=== PATIENT | female | born 1990 | race Caucasian/White ===

== ENCOUNTER 2022-08-20 09:58 | Emergency (ER) | payer BC, SELFPAY ==
--- NOTE | 2022-08-20 10:01 | ED.URI ---
HPI - URI/Sore Throat General Chief Complaint: Upper Respiratory Infection Stated Complaint: sore throat and ear pain Time Seen by Provider: 08/20/22 10:01 Source: patient and RN notes reviewed History of Present Illness HPI Narrative: patient is a 31-year-old female who presents to urgent care with complaints of sore throat, bilateral ear pain, cough and drainage. Patient states it started 1 week ago and she had a 1 time fever yesterday. Patient denies any ill exposures. Patient has taken DayQuil and NyQuil. No other acute complaints. No acute distress noted. Patient aware of the plan of care. Some parts of this dictation were generated by voice recognition software and may contain typographical and/or grammatical inaccuracies. Related Data Allergies Allergy/AdvReac Type Severity Reaction Status Date / Time No Known Allergies Allergy Verified 08/20/22 10:08 Review of Systems Review of Systems: CONSTITUTIONAL: Denies fever, chills, or sweats. EYES: Denies visual changes, redness, or discharge. ENT: Reports of nasal congestion, postnasal drainage, sore throat, bilateral otalgia CARDIOVASCULAR: Denies chest pain, palpitations, or edema. RESPIRATORY: reports a mild cough without dyspnea GASTROINTESTINAL: Denies abdominal pain, nausea, vomiting, or diarrhea. GENITOURINARY: Denies dysuria or hematuria. SKIN: Denies rash or itching. MUSCULOSKELETAL: Denies back pain, joint pain, or myalgia. NEUROLOGIC: Denies headache, numbness, or weakness. All other systems reviewed are negative, except as documented in HPI. [facility] Past Medical History Medical History BMI 28.0-28.9,adult BMI 37.0-37.9, adult Patellofemoral arthralgia of both knees Perforation of right tympanic membrane Tonsillectomy planned Weight gain Surgical History Surgical History History of placement of ear tubes Family History Family History Father No problems noted. Mother No problems noted. Sibling No problems noted. Other Diabetes mellitus Family history of coronary artery disease Social History Social History Tobacco type: cigarettes and e-cigarettes/vaping Second hand tobacco smoke exposure: No Alcohol intake: current Drinks per week: 1 Substance use: never Substance use type: does not use Additional occupation/education comments: medical coding Gender identity (if verbalized by the patient): Female Sexual Orientation (if Verbalized by the Patient): Straight or Heterosexual Spiritual care concerns: No Agree to blood products: Yes Comments At the time of my signature, I reviewed and agree with the nursing past medical, surgical, social, and family history. There is no relevant family history pertinent to the patient complaint. Exam Narrative: GENERAL: This is a well-nourished, well-developed patient, in no apparent distress. HEAD: normocephalic, atraumatic. EYES: PERRL. Sclera clear/white. Vision is grossly intact. EARS: External ears normal, auditory canals clear and without drainage, TMs normal without perforation. Hearing grossly intact. NOSE: External nose normal with no obvious nasal discharge, nares without redness, Clear rhinorrhea. THROAT: Mucous membranes moist, mild erythema to posterior pharynx without exudate or ulceration. Mild postnasal drainage. NECK: Neck supple, non-tender without lymphadenopathy, masses or thyromegaly. CARDIOVASCULAR: Regular rate and rhythm RESPIRATORY: Clear to auscultation. Breath sounds equal bilaterally. No wheezes, rales, or rhonchi. SKIN: warm, intact with no suspicious lesions or rash, good texture and turgor. NEURO: awake, alert, and oriented to person, place and time. There were no obvious focal neurologic abnormalities
[2022-08-20 10:02] VITALS: BP 81/64; PULSE 78; RESP 20; TEMP 36.5; O2SAT 98
[2022-08-20 10:09] VITALS: BP 81/64; PULSE 78; RESP 20; TEMP 36.5; O2SAT 98
== END 2022-08-20 10:18 | disposition home or self-care (01) ==
PROVIDERS: Emergency Provider Nurse Practitioner Family; PCP Family Medicine
DX: J02.9 Acute pharyngitis, unspecified (principal)
CPT/HCPCS: 87081; 99213; G0463

== ENCOUNTER 2023-07-27 16:43 | Outpatient (CLI) | payer BC, SELFPAY ==
--- NOTE | ~2023-07-27 | XR_ITS ---
EXAMINATION: XR chest 2V DATE: 07/27/2023 16:56 INDICATION: Other chest pain. TECHNIQUE: Frontal and lateral views of the chest were obtained. COMPARISON: None. FINDINGS: There is no pneumonia, pleural effusion, or pneumothorax. The heart size is normal. IMPRESSION: 1. No acute cardiopulmonary disease. Reviewed, dictated and finalized at location E. LEWARE ARCHITECT
== END 2023-07-27 16:44 | disposition home or self-care (01) ==
PROVIDERS: PCP Family Medicine; Visit Provider Nurse Practitioner Family
DX: R07.89 Other chest pain (principal)
CPT/HCPCS: 71046

== ENCOUNTER 2023-07-28 08:37 | Outpatient (CLI) | payer BC, SELFPAY ==
--- NOTE | 2023-07-28 08:53 | ECG_ITS ---
Measurements Intervals [place] Rate: 68 P: 43 CT: 131 QRS: 70 QRSD: 102 T: 45 QT: 391 QTc: 418 Interpretive Statements SINUS RHYTHM BASELINE ARTIFACT- II, III, AVF NORMAL ECG NO PREVIOUS ECG AVAILABLE FOR COMPARISON Electronically Signed On 07-28-2023 10:51:16 LIAISON PLANNER by Cortez Lynne D.O.
== END 2023-07-28 08:38 | disposition home or self-care (01) ==
LOC: ANHIMG 08:38 → ANHCARD 08:42
PROVIDERS: PCP Family Medicine; Visit Provider Nurse Practitioner Family
DX: R07.89 Other chest pain (principal)
CPT/HCPCS: 93005

== ENCOUNTER 2024-09-08 08:40 | Emergency (ER) | payer BC, SELFPAY ==
--- NOTE | ~2024-09-08 | XR_ITS ---
EXAMINATION: XR ankle LT min 3V DATE: 09/08/2024 09:06 INDICATION: Left ankle injury. TECHNIQUE: 4 views of left ankle were obtained. COMPARISON: None. FINDINGS: Alignment is normal. No fracture. Joint spaces are normal. There is an enthesophyte of post erior aspect of calcaneal tuberosity. IMPRESSION: 1. No fracture. Reviewed, dictated and finalized at location A. SPORTATION MECHANIC IMPRESSION: 1. No fracture.
[2024-09-08 08:44] VITALS: BP 123/74; PULSE 72; RESP 18; TEMP 37.2; O2SAT 99
--- NOTE | 2024-09-08 08:53 | ED_ITS ---
HPI - Extremity Injury (Lower) General Chief Complaint: Extremity Injury, Lower Stated Complaint: Fall Injury/Left Ankle History of Present Illness HPI Narrative: Patient presents with discomfort to left ankle. Patient states she rolled on a gum ball in the yd yesterday. No deformity noted no bruising no open areas noted. Patient states it hurts when she tries to ambulate on her ankle. Related Data Home Medications ?Medication ?Instructions ?Recorded ?Confirmed ?Last Taken ?Type No Home Medications 09/08/24 09/08/24 Unknown History Allergies Allergy/AdvReac Type Severity Reaction Status Date / Time No Known Allergies Allergy Verified 09/08/24 08:58 Review of Systems Review of Systems: CONSTITUTIONAL: Denies fever, chills, or sweats. EYES: Denies visual changes, redness, or discharge. ENT: Denies rhinorrhea, congestion, sore throat, or otalgia. CARDIOVASCULAR: Denies chest pain, palpitations, or edema. RESPIRATORY: Denies cough or dyspnea. GASTROINTESTINAL: Denies abdominal pain, nausea, vomiting, or diarrhea. GENITOURINARY: Denies dysuria or hematuria. SKIN: Denies rash or itching. MUSCULOSKELETAL: Denies back pain, joint pain, or myalgia. NEUROLOGIC: Denies headache, numbness, or weakness. PSYCHIATRIC: Denies anxiety or depression. [facility] Past Medical History Medical History BMI 28.0-28.9,adult BMI 35.0-35.9,adult BMI 37.0-37.9, adult Patellofemoral arthralgia of both knees Perforation of right tympanic membrane Tonsillectomy planned Weight gain Surgical History Surgical History History of placement of ear tubes Family History Family History Father No problems noted. Mother No problems noted. Sibling Pleurisy Other Diabetes mellitus Family history of coronary artery disease Social History Social History Smoking status: Current some day smoker Tobacco type: cigarettes and e-cigarettes/vaping Second hand tobacco smoke exposure: No Alcohol intake: current Drinks per week: 1 Substance use: never Substance use type: does not use Lack of Transportation: No Lack of Food: Never True Current Housing: I Have Housing Concerned About Future Housing: No Difficulty Paying Gas/Electric Bills: No Difficulty Paying for Meds: No Currently Unemployed: No Education: High School Diploma/GED Difficulty w/ Childcare or Family Care: No Living arrangements: with family Occupation/Education: occupation Additional occupation/education comments: medical coding Gender identity (if verbalized by the patient): Female Sexual Orientation (if Verbalized by the Patient): Straight or Heterosexual Spiritual care concerns: No Agree to blood products: Yes Comments At time of signature, agree with nursing past medical, surgical, social and family history. There is no relevant family history pertinent to the presenting complaint Exam Narrative: GENERAL: Well-appearing, well-nourished, and in no acute distress. HEAD: Normocephalic, atraumatic. EYES: PERRLA and EOMI. ENT: Nares clear, no rhinorrhea or epistaxis. Mucous membranes moist. NECK: Supple. CHEST: Clear to auscultation. No respiratory distress. HEART: Regular rate and rhythm. No murmur heard. Normal peripheral pulses. ABDOMEN: Soft, nontender, nondistended, normal active bowel sounds. SKIN INTACT. NORMAL DP PULSE, NORMAL CAP REFILL. NORMAL SENSATION. PAIN TO LATERAL SIDE OF LEFT ANKLE SIGH WELLING NOTED EXTREMITIES: Normal range of motion. No edema. SKIN: Warm, dry, no rash. NEURO: No focal deficits. Alert and oriented x3. [place] Coma Scale Eye Opening: Spontaneous 4 [place] Coma Scale Motor: Obeys Commands 6 [place] Coma Scale Verbal: Oriented 5 [place] Coma Scale Total 15 Course Course Level of Care: Express Care Visit Vital Signs Vital signs: Vital Signs Temperature 37.2 C 09/08/24 08:44 Pulse Rate 72 09/08/24 08:44 Respiratory Rate 18 09/08/24 08:44 Blood Pressure 123/74 09/08/24 08:44 Pulse Oximetry 99 09/08/24 08:44 Oxygen Delivery Room Air 09/08/24 08:44 Temperature 37.2 C 09/08/24 08:44 Pulse Rate 72 09/08/24 08:44 Respiratory Rate 18 09/08/24 08:44 Blood Pressure 123/74 09/08/24 08:44 Pulse Oximetry 99 09/08/24 08:44 Oxygen Delivery Room Air 09/08/24 08:44 MDM - Extremity Injury (Lower) Imaging Data Radiologist's impression: Patient: Ana Roblero : 1990 MR#: [id number] Age: 33 Acct:[id number] Loc: [facility] ADM Date: 09/08/24Attending Dr: Ordering Physician: Jess Saba APRN Date of Service: 09/08/24 Procedure(s): XR ankle LT min 3V Accession Number(s): [id number] cc: Jses Saba APRN; Saqib Silvestre MD~ EXAMINATION: XR ankle LT min 3V DATE: 09/08/2024 09:06 INDICATION: Left ankle injury. TECHNIQUE: 4 views of left ankle were obtained. COMPARISON: None. FINDINGS: Alignment is normal. No fracture. Joint spaces are normal. There is an enthesophyte of posterior aspect of calcaneal tuberosity. IMPRESSION: 1. No fracture. Reviewed, dictated and finalized at location A. SECURITY ANALYST Dictated By: Reginald Hunter MD 09/08/24 0915 Signed By: <Electronically signed by Reginald Hunter MD in [place]> Discharge Plan Discharge Clinical Impression: Left ankle sprain Ankle sprain Qualifiers: Encounter type: initial encounter Patient Disposition: Home, Self-Care Condition: Stable Instructions: Ankle Sprain (DC) Additional Instructions: Ice to the area 20-30 minutes 4-6 times a day Elevate above heart Elastic wrap or orthopedic splint as directed for comfort for the next 5-7 days please get a walking boot at any [facility] or [facility] Tylenol for lesser pain Ibuprofen regularly for the next 2-3 days for the inflammation Follow-up with PCP if further problems or concerns -If you have any worsening of symptoms or any other concerns please go to the ED immediately. Patient Language: Chinese Prescriptions: No Action No Home Medications Follow-up/Referrals: Saqib Silvestre MD [Primary Care Provider] - Phill Hammond MD [Physician] - 1 Week (call office for follow up appointment)
--- OUTSIDE RECORDS SUMMARY | 2024-09-15 06:46 | XMS_ITS | Encounter Summary ---
Author Organization [employer] Address [address] [place] [address] Care Team Providers Care Microwave Remote Sensing Scientist Name Role Phone Unavailable Primary Care Provider Unavailabl e Reason for Visit * Reason Onset Date Comments General 12/29/2020 Letter sent to a ssist patient in finding [facility] patient has [employer] insurance. Patient lives in [place] Encounter Details Date Type Department Care Team (Late st Contact Info) Description 12/29/2020 Patient Outreach [facility] Outbound Calling [id number] [place] [id number] Provider, Abstract NO ADDRESS ON FILE General (Letter sent to assist patient in finding [facility]CP patient has [employer] insurance. Patient lives in [place]) Social History Tobacco Use Types Packs/Day Years Used Date Smoking Tobacco: Never Assessed Sex and Gender Information Value Date Recorded Sex Assigned at Not on file Gender Identity Not on file Sexual Orientation Not on file documented as of this encounter Miscellaneous Notes * Telephone Encounter - Mary Gaston - 12/29/2020 8:19 AM CDT Letter sent to assist patient in finding [facility]CP patient has [employer] insurance. Patient lives in [place] documented in this encounter Plan of Treatment Not on file documented as of this encounter Visit Diagnoses Not on filedocumented in this encounter
--- OUTSIDE RECORDS SUMMARY | 2024-09-15 06:46 | XMS_ITS | Clinical Summary ---
Author Organization [employer] Address [address] [place]: Epic Prelude ADT [place] [phone] Care Team Providers Care Gift Shop Manager Name Role Phone Unavailable Primary Care Provider Unavailabl e Social History Tobacco Use Types Packs/Day Years Used Date Smoking Tobacco: Never Assessed Sex and Gender Information Value Date Recorded Sex Assigned at Not on file Gender Identity Not on file Sexual Orientation Not on file Plan of Treatment Health Maintenance Due Date Last Done Comments DTAP/TDAP/TD VACCINES (1 - Tdap) 12/09/2007 HEPATITIS B VACCINES (1 of 3 - 19+ 3-dose series) 12/09/2007 CERVICAL CANCER SCREENING 2018 INFLUENZA VACCINE (#1) 2024 HPV VACCINES Aged Out No longer eligi ble based on patient's age to complete this topic PNEUMOCOCCAL VACCINE 0-64 YEARS Aged Out No longer eligible based on patient's age to complete this topic
== END 2024-09-08 09:25 | disposition home or self-care (01) ==
PROVIDERS: Emergency Provider Nurse Practitioner Family; PCP Family Medicine
DX: S93.402A Sprain of unspecified ligament of left ankle, initial encounter (principal); W22.8XXA Striking against or struck by other objects, initial encounter; F17.210 Nicotine dependence, cigarettes, uncomplicated; F17.290 Nicotine dependence, other tobacco product, uncomplicated
CPT/HCPCS: 73610; 99213; G0463

== ENCOUNTER 2025-06-30 08:41 | Outpatient (CLI) | payer BC, SELFPAY ==
--- NOTE | ~2025-06-30 | XR_ITS ---
XR lumbar spine 2-3V Indication: M54.9 - Dorsalgia, unspecified Comparison: None Findings: The vertebral heights are intact. No fracture or subluxation. The disc heights are intact. Soft tissues unremarkable Impression: No acute abnormality. Reviewed, dictated and finalized at location P. Impression: No acute abnormality.
== END 2025-06-30 08:42 | disposition home or self-care (01) ==
LOC: MICIMG 08:42
PROVIDERS: PCP Family Medicine
DX: M54.9 Dorsalgia, unspecified (principal)
CPT/HCPCS: 72100